=== PATIENT | female | born 1985 | race Caucasian/White ===

== ENCOUNTER 2022-10-25 01:55 | Emergency (ER) | payer SELFPAY ==
--- NOTE | 2022-10-25 02:00 | NUR ---
Patient was called to be triaged but was not present in nthe waiting room or outside of ER.
--- NOTE | 2022-10-25 02:30 | NUR ---
Patient was called to be triaged but was not present in the waiting room or outside of ER.
--- NOTE | 2022-10-25 02:56 | NUR ---
Patient was called to be triaged but was not present in the waiting room or outside of ER. PATIENT WAS NOT TRIAGED OR SEEN BY [facility]
== END 2022-10-25 02:57 | disposition left against medical advice (07) ==
LOC: ER 02:04
DX: Z53.21 Procedure and treatment not carried out due to patient leaving prior to being seen by health care provider (principal)